=== PATIENT | female | born 1975 | race Caucasian/White ===

== ENCOUNTER 2016-12-28 16:49 | Emergency (ER) | payer SELFPAY ==
[~2016-12-28] VITALS: Ht 160 cm; Wt 82.2 kg
[2016-12-28 17:03] VITALS: BP 116/79
--- NOTE | 2016-12-28 18:11 | NUR ---
Patient ambulated to bed 6. RN evaluating patient at bedside.
--- NOTE | 2016-12-28 18:15 | NUR ---
PATIENT PRESENTS TO ED WITH 2 BUG BITE -RIGHT THIGH AND RIGHT CALF X 3 DAYS . PT STATES PRESSURE TYPE PAIN AND PRURITUS . DENIES N/V/D; SKIN IS PINK/WARM/DRY; AAOX4 WITH EVEN AND STEADY GAIT; LUNGS CLEAR BL; HR EVEN AND REGULAR; PT DENIES ANY FEVER, CP, SOB, OR COUGH AT THIS TIME; PATIENT STATES PAIN OF 5/10 AT THIS TIME; VSS; PATIENT POSITIONED FOR COMFORT; HOB ELEVATED; BEDRAILS UP X2; BED DOWN. ER MD MADE AWARE OF PT STATUS.
[2016-12-28 18:44] VITALS: BP 122/76
--- NOTE | 2016-12-28 18:44 | NUR ---
Patient discharged with v/s stable. Written and verbal after care instructions given and explained. Patient alert, oriented and verbalized understanding of instructions. Ambulatory with steady gait. All questions addressed prior to discharge. ID band removed. Patient advised to follow up with PMD. Rx of BACTRIM,KEFLEX AND MOTRIN given. Patient educated on indication of medication including possible reaction and side effects. Opportunity to ask questions provided and answered.
== END 2016-12-28 18:44 | disposition home or self-care (01) ==
LOC: MED 16:49
DX: L03.115 Cellulitis of right lower limb (principal); Z90.49 Acquired absence of other specified parts of digestive tract
CPT/HCPCS: 99283

== ENCOUNTER 2018-04-04 15:38 | Emergency (ER) | payer OTHER ==
[~2018-04-04] VITALS: Ht 160 cm; Wt 81.2 kg
[2018-04-04 16:26] VITALS: BP 112/77
--- NOTE | 2018-04-04 16:30 | NUR ---
PATIENT TO LOBBY. NO AVAIL. BED AT THIS TIME. WILL ORDER XR LT. SHOULDER
--- NOTE | 2018-04-04 17:03 | NUR ---
PT TAKEN TO XRAY VIA WHEELCHAIR
--- NOTE | 2018-04-04 17:12 | NUR ---
PT RETURNED FROM XRAY AND TAKEN TO BED 3
--- NOTE | 2018-04-04 17:20 | NUR ---
42/ F BIB SELF, C/O LEFT SHOULDER PAIN X2 DAYS AND COUGH X3 MONTHS. PATIENT DENIES ANY INJURY OR TRUAMA TO SHOULDER, OCCASIONAL SOB WITH PAIN. PAIN IS INTERMITTENT, DULL ACHE, 5/10. PATIENT STATES THAT COUGH COMES EVERY YEAR AND LAST THROUGH OUT THE WINTER MONTHS. CLEAR BILATERAL LUNG SOUNDS, EQUAL UNLABORED BREATHING. DENIES ANY TRUAMA OR INJURY, SOB, CP, N/V/D/, PAIN RADIATING, NUMBNESS, TINGLING, RHINORRHEA, SORE THROAT OR PAIN IN ANY OTHER LOCATION. AOX4, STEADY GAIT, SAFETY PRECAUTION IN PLACE.
[2018-04-04 18:00] VITALS: BP 112/77
--- NOTE | 2018-04-04 18:00 | NUR ---
Patient discharged with v/s stable. Written and verbal after care instructions given and explained. Patient alert, oriented and verbalized understanding of instructions. Ambulatory with steady gait. All questions addressed prior to discharge. ID band removed. Patient advised to follow up with PMD. Rx of Motrin, Promethazine given. Patient educated on indication of medication including possible reaction and side effects. Opportunity to ask questions provided and answered.
== END 2018-04-04 18:00 | disposition home or self-care (01) ==
LOC: MED 15:38
DX: S46.912A Strain of unspecified muscle, fascia and tendon at shoulder and upper arm level, left arm, initial encounter (principal); R05 Cough; X58.XXXA Exposure to other specified factors, initial encounter; Y93.89 Activity, other specified; Y92.89 Other specified places as the place of occurrence of the external cause; Y99.8 Other external cause status
CPT/HCPCS: 73030; 99283